=== PATIENT | female | born 1990 | race Caucasian/White ===

== ENCOUNTER 2020-04-24 19:24 | Emergency (ER) | payer SELFPAY ==
[2020-04-24] MEDS ORDERED: Sodium Chloride 0.9% 10 ML Syringe FLUSH PRN (19:53)
[2020-04-24] MEDS ORDERED: diphenhydrAMINE 50 MG/ML SDV IVPUSH ONE (19:54)
[2020-04-24] MEDS ORDERED: Lactated Ringers 1,000 ML IV ONE (19:54)
[2020-04-24] MEDS ORDERED: Ketorolac 30 MG/ML SDV IVPUSH ONE (19:54)
[2020-04-24] MEDS: GI Cocktail Oral Solution 30 ML PO ONE (20:05)
--- NOTE | 2020-04-24 20:38 | CR ---
[id number] RAD/RAD Abd Flat and Upright 2V EXAM: RAD Abd Flat and Upright 2V INDICATION: CONSTIPATION, RECENT ILEUS COMPARISON: None. DISCUSSION: Normal bowel gas pattern. No radiographically evident pneumoperitoneum. Moderate colonic stool burden. Correlate for constipation. IMPRESSION: As above. Ramirez Dominguez MD 04/24/205 Thank you for allowing us to participate in the care of your patient.
[2020-04-24 20:45] LABS: ANION GAP 14.8 mmol/L (10-20); CHLORIDE,CL 100 mmol/L (98-107); SODIUM,NA 137 mmol/L (136-145)
[2020-04-24] MEDS: diphenhydrAMINE 50 MG/ML SDV IM ONE (21:20)
[2020-04-24] MEDS: Omeprazole 20 MG Cap.CR PO ONE (21:20)
[2020-04-24] MEDS: Ketorolac 30 MG/ML SDV IM ONE (21:20)
--- NOTE | 2020-04-24 21:42 | EDM.PDOC ---
ED HPI GENERAL MEDICAL PROBLEM - General Stated Complaint: constipation abd pain. Time Seen by Provider: 04/24/20 19:45 Source of Information: Reports: Patient History Limitations: Reports: No Limitations - History of Present Illness INITIAL COMMENTS - FREE TEXT/NARRATIVE: Patient comes emergency department today with complaints of abdominal pain and constipation. This patient reports that she has struggled with constipation for many years. She has not had a bowel movement in a couple of weeks. She has been seen in the primary care setting as well as an ER in [place] just a couple of days ago. She has been taking MiraLAX 1 capful daily and Colace and she has not had any bowel movements. Tonight after eating she had severe epigastric squeezing shooting pain in the epigastric region. She has no nausea no vomiting. No fever no chills. No hematuria dysuria or urinary frequency. No diarrhea. This is a very typical presentation of her abdominal pain that she has had for many years. No COVID exposure no COVID symptoms. Epigastric pain Pain Score (Numeric/FACES): 3 - Related Data Allergies Allergy/AdvReac Type Severity Reaction Status Date / Time No Known Allergies Allergy Verified 04/24/20 20:04 Home Meds: Home Meds . [No Known Home Meds] 04/24/20 [History] ED ROS GENERAL - Review of Systems Review Of Systems: Comprehensive ROS is negative, except as noted in HPI. ED EXAM, GI/ABD - Physical Exam Exam: See Below Text/Narrative:: She is moaning and rocking back and forth holding her epigastric region. Exam Limited By: No Limitations General Appearance: Alert, WD/WN, Moderate Distress Eyes: Bilateral: EOMI Ears: Normal External Exam Nose: Normal Inspection Throat/Mouth: Normal Inspection Head: Atraumatic, Normocephalic Neck: Normal Inspection, Supple, Non-Tender Respiratory/Chest: No Respiratory Distress, Lungs Clear, Normal Breath Sounds, No Accessory Muscle Use, Chest Non-Tender Cardiovascular: Normal Peripheral Pulses, Regular Rate, Rhythm GI/Abdominal Exam: Normal Bowel Sounds, Soft, Non-Tender, No Organomegaly, No D istention, No Mass (Female) Exam: Deferred Rectal (Female) Exam: Deferred Back Exam: Normal Inspection, Full Range of Motion Extremities: Normal Inspection, Normal Range of Motion, Normal Capillary Refill Neurological: Alert, Oriented, Normal Cognition, No Motor/Sensory Deficits Psychiatric: Normal Affect, Normal Mood Skin Exam: Warm, Dry, Intact, Normal Color Course - Vital Signs Last Recorded V/S: Last Vital Signs Temp 98.8 F 04/24/20 19:24 Pulse 78 04/24/20 21:30 Resp 16 04/24/20 21:30 BP 120/82 04/24/20 21:30 Pulse Ox 95 04/24/20 21:30 - Orders/Labs/Meds Orders: Active Orders 24 hr Category Date Time Status Peripheral IV Insertion Adult [OM.PC] Stat Oth 04/24/20 19:52 Ordered Labs: Laboratory Tests 04/24/20 04/24/20 04/24/20 Range/Units 20:08 20:08 20:08 WBC 11.4 H (4.0-10.0) x10^3/uL RBC 3.86 L (4.00-5.50) x10^6/uL Hgb 11.7 L (12.0-16.0) g/dL Hct 35.3 (33.0-47.0) % MCV 91.5 (78.0-93.0) fL MCH 30.3 (26.0-32.0) pg MCHC 33.1 (32.0-36.0) g/dL RDW Coeff of Jordon 12.8 (10.0-15.0) % Plt Count 386 (130-400) x10^3/uL Neut % (Auto) 72.0 (50.0-80.0) % Lymph % (Auto) 18.0 L (25.0-50.0) % Lincoln % (Auto) 8.4 (2.0-11.0) % Eos % (Auto) 1.3 (0.0-4.0) % Baso % (Auto) 0.3 (0.2-1.2) % Sodium 137 (136-145) mmol/L Potassium 3.8 (3.5-5.1) mmol/L Chloride 100 (98-107) mmol/L Carbon Dioxide 26 (21-32) mmol/L Anion Gap 14.8 (10-20) mmol/L BUN 10 (7-18) mg/dL Creatinine 0.6 (0.55-1.02) mg/dL Est Cr Clr Drug Dosing TNP Estimated GFR (MDRD) > 60 Glucose 111 H (74-106) mg/dL Lactic Acid 0.4 (0.4-2.0) mmol/L Calcium 8.9 (8.5-10.1) mg/dL Corrected Calcium 9.70 (8.5-10.1) mg/dL Total Bilirubin 0.6 (0.2-1.0) mg/dL AST 26 (15-37) U/L ALT 35 (14-59) U/L Alkaline Phosphatase 150 H (46-116) U/L C-Reactive Protein 2.2 H (<=0.9) mg/dL Total Protein 7.3 (6.4-8.2) g/dL Albumin 3.0 L (3.4-5.0) g/dL Globulin 4.3 Albumin/Globulin Ratio 0.70 Lipase 73 (73-393) U/L Urine Color (YELLOW) Urine Appearance (CLEAR) Urine pH (5.0-8.0) Ur Specific Vaughan Urine Protein (NEGATIVE) mg/dL Urine Glucose (UA) (NEGATIVE) mg/dL Urine Ketones (NEGATIVE) mg/dL Urine Occult Blood (NEGATIVE) Urine Nitrite (NEGATIVE) Urine Bilirubin (NEGATIVE) Urine Urobilinogen (0.2) EU/dL Ur Leukocyte Esterase (NEGATIVE) Urine HCG, Qual (NEGATIVE) Urine Opiates Screen (Negative) Ur Barbiturates Screen (Negative) Ur Amphetamines Screen (Negative) U Benzodiazepines Scrn (Negative) Urine Cocaine Screen (Negative) U Cannabinoids Screen (Negative) Ur Creatinine mg/dL 04/24/20 04/24/20 04/24/20 Range/Units 21:03 21:03 21:03 WBC (4.0-10.0) x10^3/uL RBC (4.00-5.50) x10^6/uL Hgb (12.0-16.0) g/dL Hct (33.0-47.0) % MCV (78.0-93.0) fL MCH (26.0-32.0) pg MCHC (32.0-36.0) g/dL RDW Coeff of Jordon (10.0-15.0) % Plt Count (130-400) x10^3/uL Neut % (Auto) (50.0-80.0) % Lymph % (Auto) (25.0-50.0) % Lincoln % (Auto) (2.0-11.0) % Eos % (Auto) (0.0-4.0) % Baso % (Auto) (0.2-1.2) % Sodium (136-145) mmol/L Potassium (3.5-5.1) mmol/L Chloride (98-107) mmol/L Carbon Dioxide (21-32) mmol/L Anion Gap (10-20) mmol/L BUN (7-18) mg/dL Creatinine (0.55-1.02) mg/dL Est Cr Clr Drug Dosing Estimated GFR (MDRD) Glucose (74-106) mg/dL Lactic Acid (0.4-2.0) mmol/L Calcium (8.5-10.1) mg/dL Corrected Calcium (8.5-10.1) mg/dL Total Bilirubin (0.2-1.0) mg/dL AST (15-37) U/L ALT (14-59) U/L Alkaline Phosphatase (46-116) U/L C-Reactive Protein (<=0.9) mg/dL Total Protein (6.4-8.2) g/dL Albumin (3.4-5.0) g/dL Globulin Albumin/Globulin Ratio Lipase (73-393) U/L Urine Color Yellow (YELLOW) Urine Appearance Clear (CLEAR) Urine pH 7.0 (5.0-8.0) Ur Specific Vaughan 1.025 Urine Protein Negative (NEGATIVE) mg/dL Urine Glucose (UA) Negative (NEGATIVE) mg/dL Urine Ketones Negative (NEGATIVE) mg/dL Urine Occult Blood Negative (NEGATIVE) Urine Nitrite Negative (NEGATIVE) Urine Bilirubin Negative (NEGATIVE) Urine Urobilinogen 1.0 (0.2) EU/dL Ur Leukocyte Esterase Negative (NEGATIVE) Urine HCG, Qual Negative (NEGATIVE) Urine Opiates Screen Neg (Negative) Ur Barbiturates Screen Neg (Negative) Ur Amphetamines Screen Pos (Negative) U Benzodiazepines Scrn Pos (Negative) Urine Cocaine Screen Neg (Negative) U Cannabinoids Screen Pos (Negative) Ur Creatinine 145 mg/dL Meds: Medications Discontinued Medications Generic Name Dose Route Start Last Admin Trade Name Freq PRN Reason Stop Dose Admin Al Hydroxide/Mg Hydroxide 30 ml 04/24/20 19:54 04/24/20 20:05 Gi Cocktail PO 04/24/20 19:55 30 ml ONETIME ONE Administration Diphenhydramine HCl 25 mg 04/24/20 19:54 Benadryl IVPUSH 04/24/20 19:55 ONETIME ONE Diphenhydramine HCl 25 mg 04/24/20 21:02 04/24/20 21:20 Benadryl IM 04/24/20 21:03 25 mg ONETIME ONE Administration Lactated Ringer's 1,000 mls @ 999 mls/hr 04/24/20 19:54 Ringers, Lactated IV 04/24/20 20:54 ONETIME ONE Ketorolac Tromethamine 30 mg 04/24/20 19:54 Toradol IVPUSH 04/24/20 19:55 ONETIME ONE Ketorolac Tromethamine 30 mg 04/24/20 21:02 04/24/20 21:20 Toradol IM 04/24/20 21:03 30 mg ONETIME ONE Administration Omeprazole 20 mg 04/24/20 21:02 04/24/20 21:20 Omeprazole PO 04/24/20 21:03 20 mg ONETIME ONE Administration Polyethylene Glycol 51 gm 04/24/20 21:38 04/24/20 21:50 Miralax PO 04/24/20 21:39 51 gm ONETIME ONE Administration Sodium Chloride 10 ml 04/24/20 19:53 Saline Flush FLUSH ASDIRECTED PRN Keep Vein Open - Radiology Interpretation Free Text/Narrative:: X-ray of the abdomen per radiology shows normal gas bowel pattern no radiographic evidence of pneumoperitoneum. Moderate colonic stool burden. - Re-Assessments/Exams Free Text/Narrative Re-Assessment/Exam: Labs are drawn. Urinalysis GI Cocktail with about 75% reduction of her pain. She is sitting comfortably on the cot and appears in no distress. Unable to get an IV after multiple attempts. Which I feel is appropriate because her labs are pretty unremarkable and her pain is much improved. I did review her recent labs in [place] where she had a WBC about 15 and a CRP in the 20s as well which was on the 11th of this month. A CT abd pelvis with concerns for an ileus with liquid stool throughout the small bowel no constipation or bowel obstruction. She clearly has a little bit of stool in the bowel. But she is not doing anything aggressively to manage her constipation. She is only using MiraLAX 1 capful daily. She drinks very little to no fluid daily. She really needs to increase her fluids and increase aggressively her usage of Miralax. I really feel her pain that she is complaining about is more peptic ulcer type pain than it is constipation. Especially since about 75% of her pain is improved with a GI cocktail. She has had multiple work-ups on her abdomen for this recurrent pain which typically does not help and re-reviewing her rather extensive ER visits at the [place] emergency department she is there on a regular basis and has received multiple prescriptions for Toradol for pain complaints. I wonder if she is not developing some type of ulcer in her gastric region. Therefore I will place her on omeprazole as well as Carafate for the next 28 days. And she should also see her primary care to be evaluated for colonoscopy with her complaints of constipation that has been longstanding and not really worked up or managed by any means. As well as her recent multiple prescriptions of Toradol and recurrent epigastric pain that is concerning for peptic ulcer disease. She is understanding the plan of care and her questions are answered. Departure - Departure Time of Disposition: 19:34 Disposition: Home, Self-Care 01 Clinical Impression: Constipation Qualifiers: Constipation type: unspecified constipation type Qualified Code(s): K59.00 - Constipation, unspecified GERD (gastroesophageal reflux disease) Qualifiers: Esophagitis presence: esophagitis presence not specified Qualified Code(s): K21.9 - Gastro-esophageal reflux disease without esophagitis - Discharge Information Instructions: Constipation, Adult, [id number], Gastroesophageal Reflux Disease, Adult, [id number] Referrals: PCP,Unobtain [Primary Care Provider] - Forms: ED Department Discharge Additional Instructions: For acute symptoms of epigastric pain. OTC Maalox or Mylanta. Omeprazole 1 capsule daily for the next 28 days. RX sent to [facility] in [place]. Carafate 1 tablet 4 times a day. 1/2hr before meals and bedtime for the next 28 days. Rx sent to [facility] in [place]. For constipation. First off you have to increase your fluid intake. Miralax, this only work with escalating doses and lots of fluids intake. In the morning take two capfuls of Miralax and double your water over the next few days. Double the amount of Miralax in capfuls every 2 days until easy smooth bowel movement. Return to the ED if new or worsening symptoms. Follow up with your PCP in the next 10-14 days for recheck and consider EGD or Colonoscopy for your chronic complaints. Sepsis Event Note (ED) - Focused Exam Vital Signs: Vital Signs Pulse Resp BP Pulse Ox 04/24/20 21:30 78 16 120/82 95 - My Orders Last 24 Hours: My Active Orders 04/24/20 19:52 Peripheral IV Insertion Adult [OM.PC] Stat - Assessment/Plan Last 24 Hours: My Active Orders 04/24/20 19:52 Peripheral IV Insertion Adult [OM.PC] Stat
[2020-04-24] MEDS: Polyethylene Glycol 3350 Powder 17 GM Packet PO ONE (21:50)
== END 2020-04-24 22:00 | disposition home or self-care (01) ==
LOC: VM.ED 19:24
DX: K21.9 Gastro-esophageal reflux disease without esophagitis (principal); K59.00 Constipation, unspecified
CPT/HCPCS: 36415; 74019; 80053; 80307; 81003; 81025; 83605; 83690; 85025; 86140; 96372; 99283; 99284-25; A9270-GY; J1200; J1885

== ENCOUNTER 2020-04-25 16:55 | Emergency (ER) | payer MEDICAID ==
[2020-04-25] MEDS ORDERED: GI Cocktail Oral Solution 30 ML PO ONE (16:56)
[2020-04-25] MEDS ORDERED: diphenhydrAMINE 50 MG/ML SDV IM ONE (17:28)
[2020-04-25] MEDS ORDERED: Ketorolac 30 MG/ML SDV IM ONE (17:28)
--- NOTE | 2020-04-25 17:39 | EDM.PDOC ---
ED HPI GENERAL MEDICAL PROBLEM - General Chief Complaint: Abdominal Pain Stated Complaint: STOMACH PAIN Time Seen by Provider: 04/25/20 17:20 Source of Information: Reports: Patient History Limitations: Reports: No Limitations - History of Present Illness INITIAL COMMENTS - FREE TEXT/NARRATIVE: Patient comes emergency department today with complaints of chest rib pain and abdominal pain. Actually saw this patient yesterday for epigastric pain. 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 Pain gets worse with deep breath cough and movement. No fever no chills. No shortness of breath cough or congestion. No midsternal chest pain. No other pain in her neck jaw or arm. No palpitations. No weakness dizziness lightheadedness. No syncope. She did have abdominal pain that was located in the epigastric region that she received a GI cocktail by nursing staff prior to my evaluation with complete resolution of her epigastric pain similar to what it did yesterday. She has had no nausea or vomiting. No hematuria dysuria or urinary frequency. No black or tarry stools. No history of kidney stones. She states that every time she eats she gets a severe pain all over her body. She does admit to me to drinking alcohol on daily basis for the last month at yesterday she denied. She also denies any recreational drug usage initially. NO COVID exposure no COVID symptoms. She denies ever having this rib pain in the past or ever being seen for this rib pain in the past. Upper Abdominal Pain Score (Numeric/FACES): 9 - Related Data Allergies Allergy/AdvReac Type Severity Reaction Status Date / Time No Known Allergies Allergy Verified 04/25/20 17:06 Home Meds: Home Meds Omeprazole 20 mg PO DAILY #28 capsule. 04/25/20 [Rx] Promethazine [Phenergan] 25 mg PO TID PRN #12 tab 04/25/20 [Rx] Sucralfate [Carafate] 1 gm PO QIDACANDBED #120 tablet 04/25/20 [Rx] cloNIDine [Catapres] 0.1 mg PO Q8H PRN #12 tab 04/25/20 [Rx] Past Medical History Gastrointestinal History: Reports: Chronic Constipation Social & Family History - Tobacco Use Smoking Status *Q: Current Every Day Smoker Years of Tobacco use: 16 Packs/Tins Daily: 0.5 - Alcohol Use Days Per Week of Alcohol Use: 7 Number of Drinks Per Day: 4 Total Drinks Per Week: 28 - Recreational Drug Use Recreational Drug Use: No Other Recreational Drug Type: Denies use ED ROS GENERAL - Review of Systems Review Of Systems: Comprehensive ROS is negative, except as noted in HPI. ED EXAM, GENERAL - Physical Exam Exam: See Below Free Text/Narrative:: She once again is moaning in pain and holding her right rib cage. She denies any recent falls trauma or injury to the ribs. Exam Limited By: No Limitations General Appearance: Alert, WD/WN, Mild Distress Eye Exam: Bilateral Eye: EOMI, PERRL Ears: Normal External Exam, Normal TMs Nose: Normal Inspection, Normal Mucosa Throat/Mouth: Normal Inspection, Normal Lips, Normal Teeth, Normal Oropharynx, Normal Voice, No Airway Compromise Head: Atraumatic, Normocephalic, Other (She does have 3 crusted over areas of excoriation on her face about the size of a grape.) Neck: Normal Inspection, Supple, Non-Tender, Full Range of Motion Respiratory/Chest: No Respiratory Distress, Lungs Clear, Normal Breath Sounds, No Accessory Muscle Use, Chest Non-Tender (There is no bruising swelling ecchymosis bony deformity subcutaneous emphysema flail segments or sign of trauma to the anterior posterior thorax.) Cardiovascular: Normal Peripheral Pulses, Regular Rate, Rhythm, No Edema. No: Tachycardia Peripheral Pulses: 2+: Radial (L), Radial (R), Posterior Tibial (L), Posterior Tibial (R), Dorsalis Pedis (L), Dorsalis Pedis (R) GI/Abdominal: Normal Bowel Sounds, Soft, Non-Tender, No Organomegaly, No Distention, No Abnormal Bruit, No Mass (Female) Exam: Deferred Rectal (Female) Exam: Deferred Back Exam: Normal Inspection, Full Range of Motion. No: CVA Tenderness (L), CVA Tenderness (R) Extremities: Normal Inspection, Normal Range of Motion, Non-Tender, Normal Capillary Refill Neurological: Alert, Oriented, Normal Cognition, Normal Gait, No Motor/Sensory Deficits Psychiatric: Normal Affect, Normal Mood Skin Exam: Warm, Dry, Intact, Normal Color, No Rash EKG INTERPRETATION EKG Date: 04/25/20 Time: 17:40 Rhythm: NSR Rate (Beats/Min): 93 [place]: Normal P-Wave: Present QRS: Normal ST-T: Normal QT: Normal Course - Vital Signs Last Recorded V/S: Last Vital Signs Temp 99.9 F 04/25/20 17:00 Pulse 99 04/25/20 17:00 Resp 16 04/25/20 17:00 BP 112/72 04/25/20 18:11 Pulse Ox 100 04/25/20 17:00 - Orders/Labs/Meds Orders: Active Orders 24 hr Category Date Time Status EKG Documentation Completion [RC] STAT Care 04/25/20 17:22 Active DRUG SCREEN, URINE (NPL) Stat Lab 04/25/20 18:25 Received Labs: Laboratory Tests 04/25/20 04/25/20 04/25/20 Range/Units 18:20 18:20 18:25 WBC 10.6 H (4.0-10.0) x10^3/uL RBC 3.79 L (4.00-5.50) x10^6/uL Hgb 11.5 L (12.0-16.0) g/dL Hct 35.2 (33.0-47.0) % MCV 92.9 (78.0-93.0) fL MCH 30.3 (26.0-32.0) pg MCHC 32.7 (32.0-36.0) g/dL RDW Coeff of Jordon 12.9 (10.0-15.0) % Plt Count 352 (130-400) x10^3/uL Neut % (Auto) 72.4 (50.0-80.0) % Lymph % (Auto) 16.9 L (25.0-50.0) % [place] % (Auto) 9.1 (2.0-11.0) % Eos % (Auto) 1.3 (0.0-4.0) % Baso % (Auto) 0.3 (0.2-1.2) % Sodium 137 (136-145) mmol/L Potassium 4.1 (3.5-5.1) mmol/L Chloride 101 (98-107) mmol/L Carbon Dioxide 29 (21-32) mmol/L Anion Gap 11.1 (10-20) mmol/L BUN 12 (7-18) mg/dL Creatinine 0.9 (0.55-1.02) mg/dL Est Cr Clr Drug Dosing 96.39 mL/min Estimated GFR (MDRD) > 60 Glucose 91 (74-106) mg/dL Calcium 8.6 (8.5-10.1) mg/dL Corrected Calcium 9.64 (8.5-10.1) mg/dL Magnesium 2.3 (1.8-2.4) mg/dL Total Bilirubin 0.6 (0.2-1.0) mg/dL AST 38 H (15-37) U/L ALT 51 (14-59) U/L Alkaline Phosphatase 147 H (46-116) U/L Troponin I < 0.017 (<=0.056) ng/mL C-Reactive Protein 4.3 H (<=0.9) mg/dL Total Protein 7.0 (6.4-8.2) g/dL Albumin 2.7 L (3.4-5.0) g/dL Globulin 4.3 Albumin/Globulin Ratio 0.63 Lipase 49 L (73-393) U/L Urine Color Dark yellow H (YELLOW) Urine Appearance Cloudy H (CLEAR) Urine pH 8.5 H (5.0-8.0) Ur Specific [place] 1.020 Urine Protein Negative (NEGATIVE) mg/dL Urine Glucose (UA) Negative (NEGATIVE) mg/dL Urine Ketones Negative (NEGATIVE) mg/dL Urine Occult Blood Negative (NEGATIVE) Urine Nitrite Negative (NEGATIVE) Urine Bilirubin Negative (NEGATIVE) Urine Urobilinogen 0.2 (0.2) EU/dL Ur Leukocyte Esterase Negative (NEGATIVE) Ethyl Alcohol 3 (0-3) mg/dL Meds: Medications Discontinued Medications Generic Name Dose Route Start Last Admin Trade Name Freq PRN Reason Stop Dose Admin Al Hydroxide/Mg Hydroxide 30 ml 04/25/20 16:56 04/25/20 17:02 Gi Cocktail PO 04/25/20 16:57 30 ml ONETIME ONE Administration Clonidine HCl 0.1 mg 04/25/20 17:48 04/25/20 18:11 Catapres PO 04/25/20 17:49 0.1 mg ONETIME ONE Administration Clonidine HCl 0.1 mg 04/25/20 18:47 Catapres PO 04/25/20 18:48 ONETIME ONE Diphenhydramine HCl 50 mg 04/25/20 17:28 04/25/20 17:39 Benadryl IM 04/25/20 17:29 50 mg ONETIME ONE Administration Ketorolac Tromethamine 30 mg 04/25/20 17:28 04/25/20 17:38 Toradol IM 04/25/20 17:29 30 mg ONETIME ONE Administration Promethazine HCl 1 packet 04/25/20 18:47 Take Home: Promethazine 25 Mg, 4 Tab Pack PO 04/25/20 18:48 ONETIME ONE - Radiology Interpretation Free Text/Narrative:: Chest x-ray per radiology shows no acute process. - Re-Assessments/Exams Free Text/Narrative Re-Assessment/Exam: 04/25/20 17:33 SHe did receive a GI cocktail with resolution of the epigastric pain. I did review her chart more extensively from her visits in [place]. She was seen on 04/12 for abdominal pain 04/12 for abdominal pain. She was seen on 04/05 for rib pain, 04/04 for rib pain, 04/02 for rib pain, 04/02 for rib pain, all in the year of 2019. She was seen 10/09/2019 for an oxycodone overdose. Due to the send out urinalysis from yesterday for drug screen she was positive for benzodiazepines amphetamines as well as THC. As of note the patient only admitted to drinking alcohol on a daily basis and denied any recreational drug usage. On 10/09/19 she had an overdose of oxycodone in [place] and had a positive THC and amphetamines at this time. I returned to the patient's room and once again asked her if she used any recreational drugs and she adamantly denied this. I asked her about the overdose of oxycodone in [place] on 10/09/2019 and she states that she forgot about that. I also asked her why she was positive for benzodiazepines and amphetamines and THC yesterday and the visit if she is not taking anything. She then admits that she uses methamphetamines and THC on a daily basis and has not used them for the past 2 days and this is when her symptoms have begin to start. She uses injection all methamphetamine. Patient was given 30 mg of Toradol IM and 50mg of Benadryl IM. Reviewing the patient's PDMP she received tramadol on 04/04, 04/03 as well. She was on buprenorphine-naloxone up until 11/23 for aprox 1 month out of [place]. Clonidine 0.1 mg PO for concerns of substance abuse withdrawal. 04/25/20 17:41 The patient has been clearly less than truthful and forthcoming with her history of substance abuse. I have concerns for the patients pain being primarily due to substance withdrawal vs drug seeking behavior. As she has had multiple evaluations for the exact same issue with little pathology other than constipation which can be from her substance misusage. Although with the history of drinking as well as the multiple prescriptions of Toradol that she has received the concerns for peptic ulcer has not completely been ruled out. She still needs to see primary care for the evaluation of an EGD and colonoscopy which she has had recommended to her yesterday as well as previously at the [place] emergency department and has not followed up with this. 04/25/20 18:54 Her labs yet again are really unremarkable. Her symptoms have improved. I discussed at length with her my concerns of substance withdrawal type symptoms. I did instruct her that I will not prescribed any controlled substance for her chronic pain concerns out of the ER especially when she is less than forth coming with truthful information and history and documented history of substance abuse. I would really like the patient to see her PCP and human service center for the substance misusage and management. She is understanding of this concerns and her questions answered. Departure - Departure Time of Disposition: 18:57 Disposition: Home, Self-Care 01 Clinical Impression: Polysubstance abuse, Rib pain on right side, Epigastric pain Substance abuse withdrawal Qualifiers: Complication of substance-induced condition: uncomplicated Qualified Code(s): F19.230 - Other psychoactive substance dependence with withdrawal, uncomplicated Prescriptions: cloNIDine [Catapres] 0.1 mg PO Q8H PRN #12 tab PRN Reason: Withdrawal Symptoms Promethazine [Phenergan] 25 mg PO TID PRN #12 tab PRN Reason: Withdrawal Symptoms Instructions: Substance Use Disorder and Mental Illness, Substance Use Disorder, Abdominal Pain, Adult, [id number], Finding Treatment for Addiction, Pain Without a Known Cause Referrals: PCP,None [Primary Care Provider] - Forms: ED Department Discharge Additional Instructions: See your PCP provider next available. Continue with the Carafate and Omeprazole for concerns of GERD and possible Peptic Ulcer. Continue with the previous Miralax plan. See [facility] for assistance with your substance usage disorder. You will not receive any controlled substances from the ED for your chronic pain and substance use disorders. See your PCP about your withdrawal concerns and substance abuse misuse. Clonidine 1 tablet three times a day for withdrawal syndrome. One dose for tonight dispensed from the ED and RX to [facility]. Phenergan, 1 tablet three times a day as needed for anxiety nausea vomiting and withdrawal as well. Caution sedation. Starter pack from the ED and RX sent to [facility]. Sepsis Event Note (ED) - Evaluation Sepsis Screening Result: No Definite Risk - Focused Exam Vital Signs: Vital Signs Temp Pulse Resp BP BP Pulse Ox 04/25/20 18:11 112/72 04/25/20 17:00 99.9 F 99 16 106/74 100 - My Orders Last 24 Hours: My Active Orders 04/25/20 17:22 EKG Documentation Completion [RC] STAT 04/25/20 18:25 DRUG SCREEN, URINE (NPL) Stat - Assessment/Plan Last 24 Hours: My Active Orders 04/25/20 17:22 EKG Documentation Completion [RC] STAT 04/25/20 18:25 DRUG SCREEN, URINE (NPL) Stat Assessment:: Subacute Right rib pain, ? if aspect of withdrawal syndrome from Methamphetamine THC and other substances. Epigastric pain, ? also withdrawal syndrome vs GERD VS Peptic ulcer. Polysubstance abuse. Methamphetamine THC Misleading information to provider. Plan: See your PCP provider next available. Continue with the Carafate and Omeprazole for concerns of GERD and possible Peptic Ulcer. Continue with the previous Miralax plan. See [facility] for assistance with your substance usage disorder. You will not receive any controlled substances from the ED for your chronic pain and substance use disorders. See your PCP about your withdrawal concerns and substance abuse misuse. Clonidine 1 tablet three times a day for withdrawal syndrome. One dose for tonight dispensed from the ED and RX to [facility]. Phenergan, 1 tablet three times a day as needed for anxiety nausea vomiting and withdrawal as well. Caution sedation. Starter pack from the ED and RX sent to [facility].
[2020-04-25] MEDS ORDERED: cloNIDine 0.1 MG Tab PO ONE ×2 (17:48→18:47)
--- NOTE | 2020-04-25 17:57 | CR ---
[id number] RAD/RAD Chest PA And Lateral EXAM: RAD Chest PA And Lateral CLINICAL DATA: CHEST PAIN COMPARISON: NO PREVIOUS SIMILAR EXAM IS AVAILABLE. FINDINGS: The lungs are clear. The cardiomediastinal contour is normal. The regional bones and soft tissues are unremarkable. IMPRESSION: NO ACUTE PROCESS. Kris Wynn MD 04/25/20 [id number] Thank you for allowing us to participate in the care of your patient.
[2020-04-25] MEDS ORDERED: Take Home: Promethazine 25 MG, 4 Tab Pack PO ONE (18:47)
[2020-04-25 18:52] LABS: ANION GAP 11.1 mmol/L (10-20); CHLORIDE,CL 101 mmol/L (98-107); SODIUM,NA 137 mmol/L (136-145)
== END 2020-04-25 18:59 | disposition home or self-care (01) ==
LOC: VM.ED 16:55
DX: R10.13 Epigastric pain (principal); R07.81 Pleurodynia; F19.230 Other psychoactive substance dependence with withdrawal, uncomplicated; F17.210 Nicotine dependence, cigarettes, uncomplicated; Z79.899 Other long term (current) drug therapy
CPT/HCPCS: 71046; 80053; 80307; 81003; 83690; 83735; 84484; 85025; 86140; 93005; 96372; 99285; A9270; J1200; J1885; 36415; 93010; 99284